=== PATIENT | female | born 1960 ===

== ENCOUNTER → 2020-12-27 | Outpatient (CLI) | payer MEDICARE ==
[~2020-12-27] MED LIST: ALBU90OI INH; ALLO300 PO; ALPR.5 PO; Augmentin 875-1 EACH PO; ERGO50000 PO; ESCI20 PO; Flagyl500 MG PO; HORMONE REPLACEMENT; HYDACE10 PO; HYDACE5 PO; HYDMOR2 PO; LEVFLO500 PO; NEBI5 PO; ONDA4 PO; ONDA4ODT MM; ONDA8 PO; OXYACE5T PO; OXYB5ER PO; OXYC5 PO; PANT40 PO; POTCIT10 PO; Premarin0.3 MG PO; Prinivil10 MG PO; RXHYDACE PO; RXOXYACE PO; Roxicodone15 MG PO; TAMS.4ER PO; TIZANIDINE HCL2 MG PO; VITAMIN D31000 UNIT PO
[2020-12-28 09:15] LABS: C DIFFICILE DNA NEGATIVE (Negative)
== END | disposition home or self-care (01) ==
LOC: LAB 10:00 → LAB SHORT 10:00
PROVIDERS: Physician Assistant
DX: A04.72 Enterocolitis due to Clostridium difficile, not specified as recurrent (principal)
CPT/HCPCS: 87493

== ENCOUNTER → 2022-04-28 | Outpatient (CLI) | payer MEDICARE | LOC: LAB SHORT 07:54 → LAB 07:54 | DX: R30.0 Dysuria (principal) | CPT/HCPCS: 87077; 87086; 87186 ==

== ENCOUNTER → 2022-05-04 | Outpatient (CLI) | payer MEDICARE ==
[2022-05-04 15:07] LABS: BASOPHILS ABSOLUTE AUTO 0.03 K/mm3 (0.00-0.23); BASOPHILS PERCENT AUTO 0 % (0-2); EOSINOPHILS PERCENT AUTO 1 % (0-6); Hematocrit 49.3 % (33.0-51.0); IMMATURE GRAN ABSOLUTE AUTO 0.11 K/mm3 (0.00-0.10); IMMATURE GRAN PERCENT AUTO 2 % (0-1); LYMPHOCYTES ABSOLUTE AUTO 0.31 K/mm3 (0.84-5.20); LYMPHOCYTES PERCENT AUTO 4 % (21-46); MONOCYTES PERCENT AUTO 7 % (4-13); Mean Corpuscular HGB 31.9 pg (26.0-34.0); Mean Corpuscular HGB Conc 34.5 g/dL (31.5-36.5); Mean Corpuscular Volume 93 fL (80-100); NEUTROPHILS ABSOLUTE AUTO 6.37 K/mm3 (1.96-9.15); NEUTROPHILS PERCENT AUTO 86 % (41-73); RDW Coefficient Variation 14.3 % (11.7-14.2); Red Blood Cell Count 5.33 M/mm3 (3.80-5.20); White Blood Cell Count 7.42 K/mm3 (4.00-11.30)
[2022-05-04 15:14] LABS: Bun/Creatinine Ratio 17.1 (12.0-20.0); Calcium, Blood 9.7 mg/dL (8.5-10.1); Creatinine, Blood 1.17 mg/dL (0.40-1.00); Mean Platelet Volume 9.4 fL (9.1-12.4); Potassium, Blood 3.4 mmol/L (3.5-5.5)
[2022-05-04 15:25] LABS: Platelet Count 125 K/mm3 (150-400)
== END ==
LOC: LAB 15:03 → LAB SHORT 15:03
PROVIDERS: Physician Assistant Surgical
DX: R10.32 Left lower quadrant pain (principal)
CPT/HCPCS: 80048; 85025

== ENCOUNTER → 2022-11-27 | Outpatient (CLI) | payer OTHER ==
[~2022-11-27] MED LIST changes: +HYDR1TAB94 PO
[2022-11-27 13:25] LABS: Source, Urine Voided
[2022-11-27 15:31] LABS: Appearance, Urine Hazy (Clear); Bilirubin, Urine Neg (Neg); Blood, Urine Neg (Neg); Color, Urine Yellow (P-Yellow); Glucose Qualitative, Urine Neg (Neg); Ketones, Urine Neg (Neg); Leukocyte Esterase, Urine Neg (Neg); Nitrite, Urine Neg (Neg); Protein, Urine 1+ (Neg); Urobilinogen, Urine 2+ (Normal)
[2022-11-27 16:19] LABS: Bacteria Few /hpf; Red Blood Cells, Urine 0-2 /hpf (0-2); White Blood Cells, Urine 0-2 /hpf (0-5)
[2022-11-27 16:20] LABS: Calcium Oxalate Crystals Mod /hpf; Squamous Epithelial Cells Mod /hpf (Few)
== END | disposition home or self-care (01) ==
LOC: LAB SHORT 13:21
PROVIDERS: Hospitalist
DX: N39.0 Urinary tract infection, site not specified (principal)
CPT/HCPCS: 81001

== ENCOUNTER 2022-11-28 06:52 | Emergency (ER) | payer OTHER ==
[~2022-11-28] VITALS: Ht 165.1 cm; Wt 77.1 kg
[~2022-11-28 06:52] MED LIST changes: -HYDR1TAB94 PO
[2022-11-28] MEDS ORDERED: HYDR1TAB94 PO (09:09)
[2022-11-28 10:05] VITALS: BP 121/73
== END 2022-11-28 10:11 | disposition home or self-care (01) ==
LOC: ER 06:52
DX: S59.902A Unspecified injury of left elbow, initial encounter (principal); W06.XXXA Fall from bed, initial encounter
CPT/HCPCS: 29105; 73080; 99283-25; A9270